=== PATIENT | female | born 1990 | race African-American/Black ===

== ENCOUNTER 2017-05-10 19:24 | Emergency (ER) | payer BC ==
[2017-05-10 20:16] LABS: Bilirubin Negative (Negative); Blood, Urine Large (Negative); Clarity CLOUDY (Clear); Glucose, Urine (Dipstick) Negative (Negative); Leukocyte Small (Negative); Nitrite Positive (Negative); Protein, Urine (Dipstick) Negative (Neg-Trace); Urobilinogen 0.2 mg/dL (0.2-1.0)
[2017-05-10 20:20] LABS: Pregnancy Test - Urine (BHCG) Negative (Negative); Pregu Control Background? CLEAR/WHITE (CLR/WHITE); Pregu Control Bar Appear? YES (CONTROL BAR)
[2017-05-10 20:21] LABS: Bacteria/HPF 4+ HPF (None Seen); Hyaline Casts/LPF 0-3 HYALINE CAST LPF (0-3 Hyaline); RBC/HPF GREATER THAN 50-TNTC HPF (0-3); Squamous Epithelial 0-3 HPF (0-3); WBC/HPF 21-50 HPF (0-3)
[2017-05-12 01:07] LABS: Chlamydia by PCR Not Detected (NotDetected); GC by PCR Not Detected (NotDetected)
== END 2017-05-10 21:58 | disposition home or self-care (01) ==
LOC: ERS 19:24
DX: N39.0 Urinary tract infection, site not specified (principal)
CPT/HCPCS: 81003; 81015; 81025; 87480; 87491; 87510; 87591; 87660; 99284

== ENCOUNTER 2018-09-03 07:38 | Day surgery (SDC) | payer BC ==
[2018-09-03 09:33] LABS: Leukocyte Unable to Interpret (Negative); Nitrite Unable to Interpret (Negative)
[2018-09-03 09:34] LABS: Bilirubin Unable to Interpret (Negative); Blood, Urine Unable to Interpret (Negative); Glucose, Urine (Dipstick) Unable to Interpret mg/dL (Negative); Protein, Urine (Dipstick) Unable to Interpret mg/dL (Neg-Trace); Urobilinogen UNABLE TO INTERPRET mg/dL (0.2-1.0)
[2018-09-03 09:41] LABS: Clarity Turbid (Clear); Specific Gravity, Urine 1.015 (1.002-1.036)
[2018-09-03 09:42] LABS: pH, Urine 5.5 (5.0-9.0)
[2018-09-03 09:43] LABS: RBC/HPF GREATER THAN 50-TNTC HPF (0-3); Squamous Epithelial 0-3 HPF (0-3)
[2018-09-03 09:44] LABS: Bacteria/HPF 1+ HPF (None Seen); Hyaline Casts/LPF 0-3 HYALINE CAST LPF (0-3 Hyaline)
[2018-09-03 09:51] LABS: #Eosinphils 0.2 thou/uL (0.0-0.7); #Lymphocytes 2.2 thou/uL (1.20-3.40); #Monocytes 0.4 thou/uL (0.11-0.59); #Neutrophils 4.3 thou/uL (1.40-6.50); %Basophils 0.6 % (0.0-1.0); %Eosinophils 2.5 % (0.0-10.0); %Lymphocytes 30.9 % (21.0-51.0); %Monocytes 5.5 % (0.0-10.0); %Neutrophils 60.5 % (42.0-75.0); Hemoglobin 12.6 g/dL (12.0-16.0); Mean Corpuscular HGB CONC 32.2 g/dL (32.0-36.0); Mean Corpuscular Hemoglobin 25.8 pg (27.0-31.0); Mean Corpuscular Volume 80.2 fL (78.0-98.0); Platelet Count 312 thou/uL (130-400); RBC Distribution Width 12.4 % (11.5-14.5); Red Blood Cell (RBC) Count 4.88 mill/uL (4.20-5.40); White Blood Cell (WBC) Count 7.2 thou/uL (4.8-10.8)
[2018-09-03 10:02] LABS: Pregu Control Background? CLEAR/WHITE (CLR/WHITE); Pregu Control Bar Appear? YES (CONTROL BAR); Specific Gravity 1.015 (1.002-1.036)
[2018-09-03 10:04] LABS: Pregnancy Test - Urine (BHCG) Negative (Negative)
[2018-09-03 10:11] LABS: ALT (SGPT) 14 U/L (8-55); AST (SGOT) 18 U/L (5-34); Albumin 4.3 g/dL (3.5-5.0); Alkaline Phosphatase 52 U/L (40-150); Anion Gap 11 mmol/L (10-20); BUN (Urea Nitrogen) 11 mg/dL (7.0-18.7); Bilirubin, Total 0.3 mg/dL (0.2-1.2); Calc. Creatinine Clearance 0 mL/min (70-130); Calcium 9.9 mg/dL (7.8-10.44); Carbon Dioxide 26 mmol/L (22-29); Chloride 106 mmol/L (98-107); Estimated GFR-MDRD Greater than 90; Globulin 3.6 g/dL (2.4-3.5); Glucose 91 mg/dL (70-105); Potassium 3.9 mmol/L (3.5-5.1); Protein, Total 7.9 g/dL (6.0-8.3); Sodium 139 mmol/L (136-145)
--- NOTE | 2018-09-03 10:33 | CT ---
EXAM: Abdomen and pelvic CT scan with contrast: HISTORY: Right lower quadrant pain COMPARISON: None FINDINGS: The visualized lung bases are clear. Liver: Unremarkable. Gallbladder:Unremarkable. Pancreas:Unremarkable Spleen:Unremarkable. Adrenal glands:Unremarkable. Kidneys:No renal calculus or acute obstruction.No solid or cystic mass. No evidence for bowel obstruction. The appendix appears to be abnormally thickened up to approximately 0.9 cm in outer dimension through much of the appendix and the appendix tip measures 1.4 cm in outer diameter with possible very mild periappendiceal fat stranding. No abscess or extraluminal gas. Evidence for prior surgery in the pelvis. Trace cul-de-sac fluid. The urinary bladder is unremarkable. No abscess, adenopathy, or abnormal fluid collection within the abdomen or pelvis. IMPRESSION: Abnormally thickened appendix particularly the appendix tip with possible mild periappendiceal fat st randing. Findings discussed with Dr. Mir in the emergency room at 10:25 AM.
[2018-09-03] MEDS ORDERED: Piperacillin/Tazobactam 3.375 GM VIAL ONE (10:39)
--- NOTE | 2018-09-03 11:25 | HP ---
HISTORY OF PRESENT ILLNESS: Mary Lunsford is a 28-year-old black female [employer] employee as an senior instructional designer. She has had a 24-hour history of right lower quadrant pain, followed by nausea, anorexia, and increased pain with movement. She is seen in the emergency room by Dr. Chava Mir. CAT scan demonstrated changes of appendicitis, although her white count was normal. ALLERGIES: NONE. SOCIAL HISTORY: Tobacco, none. Alcohol, none. MEDICATIONS: Iron. PAST SURGICAL HISTORY: Tubal ligation, arm surgery. PAST MEDICAL HISTORY: Noncontributory. REVIEW OF SYSTEMS: Ten-point noncontributory. PHYSICAL EXAMINATION: VITAL SIGNS: Blood pressure 120/74, respiratory rate 18, temperature 98.6 degrees. HEAD, EYES, EARS, NOSE and THROAT: Unremarkable. Sclerae nonicteric. SKIN: Nonjaundiced. LYMPHATICS: No lymphadenopathy in neck, axilla, or groins. NEUROLOGICAL: Intact. No deficits. LUNGS: Clear to auscultation. CARDIAC: Regular rate and rhythm. No murmur or gallop. ABDOMEN: Soft. Tenderness in right lower quadrant, guarding, rebound. EXTREMITIES: Unremarkable. LABORATORY DATA: Normal. ASSESSMENT AND PLAN: Acute appendicitis. Recommend laparoscopic video appendectomy. Risks of infection, bleeding, visceral injury, open procedure discussed. She consents, questions answered. Job ID: [id number]
[2018-09-03] MEDS ORDERED: Ketorolac Tromethamine 30 MG/ML VIAL ONE (13:21)
[2018-09-03] MEDS ORDERED: Fentanyl 100 MCG/2 ML VIAL ONE (13:30)
[2018-09-03] MEDS ORDERED: Lidocaine 2% Jelly 5 ML TUBE ONE (13:31)
[2018-09-03] MEDS ORDERED: Bupivacaine HCl 0.5%/Epinephrine 1:200,000/PF 30 ml Vial ONE (13:32)
[2018-09-03] MEDS ORDERED: Bupivacaine/Epinephrine 0.25% 30 ML VIAL ONE (13:32)
[2018-09-03] MEDS ORDERED: Iopamidol 370 76% 100 ML VIAL ONE (13:37)
[2018-09-03] MEDS ORDERED: PHENYLEPHRINE-NS 100 MCG/ML 10 ML SYRINGE ONE (16:44)
[2018-09-03] MEDS ORDERED: Ondansetron PF 4 MG/2 ML Vial ONE (16:44)
[2018-09-03] MEDS ORDERED: Succinylcholine Chloride 20 MG/ML 10 ml SYRINGE FS ONE (16:44)
[2018-09-03] MEDS ORDERED: Dexamethasone 20 MG/5 ML VIAL ONE (16:44)
[2018-09-03] MEDS ORDERED: Lidocaine 1% PF 5 ML VIAL ONE (16:44)
[2018-09-03] MEDS ORDERED: PROPOFOL 200 MG/20 ML VIAL ONE (16:44)
--- NOTE | 2018-09-03 21:33 | OP ---
DATE OF PROCEDURE: 09/03/2018 PREOPERATIVE DIAGNOSIS: Acute appendicitis. POSTOPERATIVE DIAGNOSIS: Acute appendicitis. PROCEDURE PERFORMED: Laparoscopic video appendectomy. ANESTHESIA: General, local 0.5% Marcaine with epinephrine 30 mL total volume used. No Willard catheter was placed at the beginning of procedure or removed at the end. Also, we did not use the LigaSure as a consequence, had used Chen clips and an Endobag, otherwise not necessary if we had the LigaSure. DESCRIPTION OF PROCEDURE: The patient was taken to the operating room, where under general anesthesia, abdomen was prepared with ChloraPrep and draped in routine fashion. Local anesthetic was infiltrated in the skin and subcutaneous tissue about each port site. Infraumbilical incision was made. Pneumoperitoneum to 15 mmHg obtained with a Veress needle, replaced with a 5 port, video laparoscope inserted. Right lateral subcostal incision was made and a 5 port placed. Suprapubic incision was made and a 12 port placed. Appendix identified, noted to be acutely inflamed. Mesoappendix was taken down with a hook cautery, down to the base of the appendix. Clips were applied, necessary for hemostasis. The base of the appendix was divided with Endo-ELISEO blue load stapler. The appendix was placed in Endobag as a consequence of not having the LigaSure. Hemostasis was gained with cautery and clips. Chen applied as there was some oozing. Irrigant and pneumoperitoneum evacuated after suprapubic fascia was approximated with 0 Vicryl GraNee needle. All skin incisions were approximated with interrupted subdermal 4-0 Monocryl and [place] glue applied. Job ID: [id number]
== END 2018-09-03 17:30 | disposition home or self-care (01) ==
LOC: ERS 07:38 → SDC 12:50 → ERS 12:55 → SDC 17:30
PROVIDERS: ATTEND Specialist
PROC: 0DTJ4ZZ Resection of Appendix, Percutaneous Endoscopic Approach (ICD-10-PCS; principal; 2018-09-03)
DX: K35.80 Unspecified acute appendicitis (principal); F12.11 Cannabis abuse, in remission; Z79.899 Other long term (current) drug therapy
CPT/HCPCS: 74177; 80053; 81003; 81015; 81025; 85025; 88304; 96365; 96366; J0131; J0670; J1100; J1885; J2001; J2405; J2543; J2704; J3010; Q9967